=== PATIENT | male | born 1940 | race Caucasian/White ===

== ENCOUNTER 2021-05-25 05:54 | Inpatient (IN) ==
[2021-05-25] MEDS ORDERED: LACTATED RINGERS 1,000 ML IV SCH (06:00)
[2021-05-25] MEDS ORDERED: ALVIMOPAN 12 MG CAPSULE PO ONE (06:00)
[2021-05-25] MEDS ORDERED: fentaNYL 100 MCG/2 ML VIAL ONE (06:13)
[2021-05-25] MEDS ORDERED: ROCURONIUM 50 MG/5 ML VIAL IV ONE ×2 (06:13→08:34)
[2021-05-25] MEDS ORDERED: LIDOCAINE 2% 5 ML VIAL ONE (06:13)
[2021-05-25] MEDS ORDERED: ACETAMINOPHEN INJ 1,000 MG/100 ML VIAL IV ONE (06:13)
[2021-05-25] MEDS ORDERED: SUCCINYLCHOLINE 200 MG/10 ML VIAL ONE (06:13)
[2021-05-25] MEDS ORDERED: ONDANSETRON 4 MG/2 ML VIAL ONE (06:13)
[2021-05-25] MEDS ORDERED: DEXAMETHASONE 4 MG/1 ML VIAL ONE (06:13)
[2021-05-25] MEDS ORDERED: propofoL 200 MG/20 ML VIAL IV ONE (06:13)
[2021-05-25] MEDS ORDERED: PHENYLEPHRINE 10 MG/1 ML VIAL IV ONE (06:14)
[2021-05-25] MEDS ORDERED: GLYCOPYRROLATE 0.4 MG/2 ML VIAL ONE (06:14)
[2021-05-25] MEDS ORDERED: MANNITOL 12.5 GM/50 ML VIAL IV ONE (06:44)
[2021-05-25] MEDS ORDERED: INDOCYANINE GREEN 25 MG VIAL IV ONE (06:46)
[2021-05-25] MEDS ORDERED: ePHEDrine 50 MG/ML VIAL ONE (09:25)
[2021-05-25] MEDS ORDERED: ALBUMIN 5% 12.5 GM/250 ML VIAL IV ONE ×2 (09:43→10:27)
[2021-05-25 10:18] LABS: Bilirubin,Urine Negative (Negative); Blood, Urine Negative (Negative); Calcium Oxalate Crystals,Urine Occasional /HPF (Few); Glucose,Urine (UA) Negative (Negative); Hyaline Casts,Urine 17 /LPF (0-3); Ketones,Urine 20 mg/dL (Negative); Mucus,Urine Many /LPF (Occasional); Nitrite,Urine Negative (Negative); Protein,Urine 30 MG/DL; Urine Appearance CLEAR (Clear); Urine Color Yellow (Yellow); Urine Specific Gravity 1.021 (1.001-1.035); Urine Urobilinogen < 2.0 EU/DL (0.2-1.0)
[2021-05-25 10:34] LABS: Hematocrit 35.1 VOL% (42.0-52.0); Hemoglobin 11.2 GM/DL (14.0-18.0)
[2021-05-25] MEDS ORDERED: SODIUM CHLORIDE 0.9% 1,000 ML IV PRN (10:43)
[2021-05-25 11:02] LABS: Hematocrit 33.6 VOL% (42.0-52.0); Hemoglobin 10.5 GM/DL (14.0-18.0)
[2021-05-25] MEDS ORDERED: SUGAMMADEX 200 MG/2 ML VIAL IV ONE (11:11)
[2021-05-25] MEDS ORDERED: INFLUENZA VIRUS VACCINE 0.5 ML SYRINGE IM ONE (13:47)
[2021-05-25] MEDS: SODIUM CHLORIDE 0.9% 1,000 ML IV SCH (14:41)
[2021-05-25] MEDS: CARBIDOPA/LEVODOPA 25-100 MG TABLET PO SCH ×2 (14:45→21:18)
[2021-05-25] MEDS: metFORMIN 500 MG TABLET PO SCH ×2 (16:52→17:45)
[2021-05-25] MEDS: glipiZIDE 5 MG TABLET PO SCH ×2 (16:52→17:46)
[2021-05-25] MEDS: FERROUS SULFATE 325 MG TABLET PO SCH (16:53)
[2021-05-25] MEDS: GABAPENTIN 400 MG CAPSULE PO SCH ×2 (16:53→21:18)
[2021-05-25] MEDS ORDERED: HYDROmorphone 2 MG/1 ML VIAL IV PRN (17:07)
[2021-05-25] MEDS: ONDANSETRON 4 MG/2 ML VIAL IV PRN (17:20)
[2021-05-25] MEDS: oxyCODONE/ACETAMINOPHEN 5-325 MG TABLET PO PRN (17:22)
[2021-05-25] MEDS: OMEGA 3 ACID ETHYL ESTERS 1 GM CAPSULE PO SCH (21:18)
[2021-05-25] MEDS: MULTIVITAMIN (CENTRUM) TABLET PO SCH (21:18)
[2021-05-25] MEDS: PANTOPRAZOLE 40 MG TABLET PO SCH (21:18)
[2021-05-25] MEDS: FLUoxetine 20 MG CAPSULE PO SCH (21:18)
[2021-05-26] MEDS: SODIUM CHLORIDE 0.9% 1,000 ML IV SCH (01:12)
[2021-05-26] MEDS: oxyCODONE/ACETAMINOPHEN 5-325 MG TABLET PO PRN ×4 (03:51→23:36)
[2021-05-26 05:01] LABS: Basophils % 0.1 % (0.0-0.8); Eosinophils % 0.1 % (0.00-10.9); Hematocrit 29.9 VOL% (42.0-52.0); Hemoglobin 9.5 GM/DL (14.0-18.0); Immature Granulocytes % 0.3 %; Immature Granulocytes Absolute 0.02 #; Lymphocytes # 0.9 10*3/uL (1.4-4.0); Lymphocytes % 13.4 % (21.2-54.2); Mean Corpuscular HGB Conc 31.8 GM/DL (32-36); Mean Corpuscular Volume 94.6 FL (87-102); Mean Platelet Volume 9.5 FL (9.6-12.0); Monocytes % 10.8 % (1.7-12.7); Neutrophils % 75.3 % (38.7-73.9); Platelet Count 128 T/CUMM (130-400); Red Blood Count 3.16 MC/CUMM (3.8-5.5); Red Cell Distribution Width 13.9 % (9.3-17.3); White Blood Count 6.9 T/CUMM (4-12)
[2021-05-26 05:30] LABS: Calcium 9.1 MG/DL (8.5-10.1); Potassium 4.4 MMOL/L (3.5-5.1)
[2021-05-26] MEDS: GABAPENTIN 400 MG CAPSULE PO SCH ×4 (08:51→20:20)
[2021-05-26] MEDS: metFORMIN 500 MG TABLET PO SCH ×2 (08:52→16:13)
[2021-05-26] MEDS: FERROUS SULFATE 325 MG TABLET PO SCH ×2 (08:52→16:13)
[2021-05-26] MEDS: ATORVASTATIN 80 MG TABLET PO SCH (08:52)
[2021-05-26] MEDS: TAMSULOSIN 0.4 MG CAPSULE PO SCH (08:52)
[2021-05-26] MEDS: amLODIPine 10 MG TABLET PO SCH (08:52)
[2021-05-26] MEDS: glipiZIDE 5 MG TABLET PO SCH ×2 (08:52→16:13)
[2021-05-26] MEDS: CARBIDOPA/LEVODOPA 25-100 MG TABLET PO SCH ×3 (08:52→20:20)
[2021-05-26] MEDS: ONDANSETRON 4 MG/2 ML VIAL IV PRN (11:54)
[2021-05-26] MEDS: MULTIVITAMIN (CENTRUM) TABLET PO SCH (20:19)
[2021-05-26] MEDS: PANTOPRAZOLE 40 MG TABLET PO SCH (20:20)
[2021-05-26] MEDS: FLUoxetine 20 MG CAPSULE PO SCH (20:20)
[2021-05-26] MEDS: OMEGA 3 ACID ETHYL ESTERS 1 GM CAPSULE PO SCH (20:27)
[2021-05-27] MEDS: oxyCODONE/ACETAMINOPHEN 5-325 MG TABLET PO PRN (03:01)
[2021-05-27 08:01] VITALS: BP 123/79
[2021-05-27] MEDS: CARBIDOPA/LEVODOPA 25-100 MG TABLET PO SCH (08:54)
[2021-05-27] MEDS: glipiZIDE 5 MG TABLET PO SCH (08:54)
[2021-05-27] MEDS: ATORVASTATIN 80 MG TABLET PO SCH (08:54)
[2021-05-27] MEDS: GABAPENTIN 400 MG CAPSULE PO SCH (08:54)
[2021-05-27] MEDS: amLODIPine 10 MG TABLET PO SCH (08:55)
[2021-05-27] MEDS: TAMSULOSIN 0.4 MG CAPSULE PO SCH (08:55)
[2021-05-27] MEDS: FERROUS SULFATE 325 MG TABLET PO SCH (08:55)
[2021-05-27] MEDS ORDERED: INFLUENZA VIRUS VACCINE 0.5 ML SYRINGE IM ONE (09:00)
[2021-05-27] MEDS: metFORMIN 500 MG TABLET PO SCH (09:19)
== END 2021-05-27 10:15 | disposition home or self-care (01) | DRG 658 ==
LOC: N.OR 05:54 → N.SDSINP 06:02 → N.3E 12:55
PROVIDERS: ADMIT Urology; ATTEND Urology